=== PATIENT | female | born 1955 | race African-American/Black ===

== ENCOUNTER 2016-12-30 23:27 | Emergency (ER) | payer OTHER ==
[~2016-12-30] VITALS: Ht 152.4 cm; Wt 61.3 kg
[2016-12-31 00:40] LABS: HEMATOCRIT 35.6 % (36.0-46.0); MCH 28.2 PG (29.0-34.0); MCHC 33.4 G/DL (30.0-36.0); MCV 84.4 FL (83-99); MEAN PLAT.VOLUME 10.4 uM^3 (9.5-12.4); PLATELET COUNT 307 K/uL (156-360); RBC DIS.WIDTH-CV 13.8 % (11.8-14.6); RBC DIS.WIDTH-SD 41.5 % (39-53); RED BLOOD COUNT 4.22 M/uL (3.80-5.20); WHITE BLOOD COUNT 6.8 K/uL (4.1-10.2)
[2016-12-31 00:53] LABS: CHLORIDE 102 mEq/L (99-109); POTASSIUM 3.2 mEq/L (3.7-5.4); SODIUM 138 mEq/L (136-147)
[2016-12-31 00:55] LABS: GLUCOSE 99 mg/dL (70-99)
[2016-12-31 00:57] LABS: ANION GAP 9 MEQ/L (2-14)
[2016-12-31 00:59] LABS: GFR ESTIMATE (CALCULATED) 33 mL/min/
[2016-12-31 01:00] LABS: UREA NITROGEN (BUN) 39 mg/dL (9-23)
[2016-12-31 01:00] LABS: ADD MIUA? YES; BILIRUBIN NEGATIVE; BLOOD SMALL; COLOR YELLOW ((YELLOW)); GLUCOSE (STRIP) NEGATIVE; KETONES NEGATIVE; LEUKOCYTES SMALL; NITRITE NEGATIVE; PH, URINE 5.5 (5-8); PROTEIN (STRIP) NEGATIVE; SPECIFIC GRAVITY 1.013 (1.000-1.030); UROBILINOGEN 0.2 MG/DL (0.2-1.0)
[2016-12-31 01:23] LABS: EPITHELIAL CELLS 1+ /HPF; MUCUS NONE SEEN /LPF; RED BLOOD CELLS RARE /HPF (0-5)
[2016-12-31 01:24] LABS: BACTERIA 2+ /HPF; CASTS NONE SEEN /LPF; CRYSTALS NONE SEEN; UCUL ADDED? YES
[2016-12-31 02:48] VITALS: BP 162/76
== END 2016-12-31 02:49 | disposition home or self-care (01) ==
LOC: EME 23:27 → RME 23:27
DX: R79.89 Other specified abnormal findings of blood chemistry (principal); R10.11 Right upper quadrant pain; Z87.440 Personal history of urinary (tract) infections; I10 Essential (primary) hypertension
CPT/HCPCS: 74176; 80048; 81003; 85027; 87086; 99281; 99285; J7030